=== PATIENT | female | born 1995 | race Two or more races ===

== ENCOUNTER 2018-01-22 02:26 | Emergency (ER) ==
[~2018-01-22] VITALS: Ht 167.6 cm; Wt 92.5 kg
[2018-01-22 03:09] LABS: ALBUMIN 3.9 g/dL (3.2-4.8); CHLORIDE 105 mEq/L (99-109); POTASSIUM 3.9 mEq/L (3.7-5.4); SODIUM 140 mEq/L (136-147)
[2018-01-22 03:12] LABS: GLUCOSE 87 mg/dL (70-99); TOTAL PROTEIN 6.8 g/dL (6.4-8.3)
[2018-01-22 03:13] LABS: TOTAL BILIRUBIN 0.1 mg/dL (0.0-1.0)
[2018-01-22 03:15] LABS: ALKALINE PHOSPHATASE 87 IU/L (3-129); CREATININE 0.8 mg/dL (0.6-1.3); GFR ESTIMATE (CALCULATED) > 59 mL/min/
[2018-01-22 03:16] LABS: UREA NITROGEN (BUN) 11 mg/dL (9-23)
[2018-01-22 03:17] LABS: AST (GOT) 15 IU/L (2-34)
[2018-01-22 03:18] LABS: ALT (GPT) 12 IU/L (3-49)
[2018-01-22 03:43] LABS: ANTI-HIV (AIDS STAT TEST) NONREACTIVE
[2018-01-22 12:29] LABS: HEPATITIS B SURFACE ANTIGEN Nonreactive; HEPATITIS C ANTIBODY Nonreactive
[2018-01-22 12:30] LABS: HIV-1/2 AB/AG COMBO Nonreactive
[2018-01-22 12:31] LABS: HEPATITIS B SURFACE ANTIBODY REACTIVE
[2018-01-22 12:37] LABS: ANTI-HEPATITIS B CORE (TOTAL) Nonreactive
== END 2018-01-22 04:04 | disposition home or self-care (01) ==
LOC: EME 02:26
PROVIDERS: Emergency Medicine
DX: S60.940A Unspecified superficial injury of right index finger, initial encounter (principal); W46.0XXA Contact with hypodermic needle, initial encounter; Z77.21 Contact with and (suspected) exposure to potentially hazardous body fluids; Y93.89 Activity, other specified; Y99.0 Civilian activity done for income or pay; Y92.239 Unspecified place in hospital as the place of occurrence of the external cause; F17.200 Nicotine dependence, unspecified, uncomplicated
CPT/HCPCS: 80053; 86704; 86706; 86803; 87340; 87389; 99281; 99283